=== PATIENT | male | born 1970 | race American Indian/Alaskan Native ===

== ENCOUNTER 2018-08-21 08:33 | Outpatient (CLI) | payer MEDICARE ==
[2018-08-21] MEDS ORDERED: XYLOCAINE TOPICAL 4% TP ONE (09:00)
== END 2018-08-21 08:34 | disposition home or self-care (01) ==
LOC: WOUND 08:33
PROVIDERS: ATTEND Surgery
DX: E11.621 Type 2 diabetes mellitus with foot ulcer (principal); L97.424 Non-pressure chronic ulcer of left heel and midfoot with necrosis of bone; E11.22 Type 2 diabetes mellitus with diabetic chronic kidney disease; I12.0 Hypertensive chronic kidney disease with stage 5 chronic kidney disease or end stage renal disease; N18.6 End stage renal disease
CPT/HCPCS: 11044; 11047; G0463; 36415; 71046; 80048; 83036; 99205

== ENCOUNTER 2018-08-21 12:24 | Outpatient (CLI) | payer MEDICARE ==
[2018-08-21 13:07] LABS: Calcium 7.7 mg/dL (8.4-10.2)
--- NOTE | 2018-08-21 13:46 | XRay Report ---
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 Chest pain COMPARISON: None FINDINGS: Support devices: A dual-lumen right IJ venous catheter terminates in the lower SVC. Heart: Within normal limits. Lungs/pleura: No acute air space or interstitial disease. No pneumothorax. Additional findings: None. IMPRESSION: No acute findings. Signer Name: Suman Browne Jr, MD Signed: 08/21/2018 1:41 PM Workstation Name: [id number]
== END 2018-08-21 12:25 | disposition home or self-care (01) ==
LOC: XRAY 12:24
PROVIDERS: ATTEND Surgery
DX: E11.621 Type 2 diabetes mellitus with foot ulcer (principal); L97.424 Non-pressure chronic ulcer of left heel and midfoot with necrosis of bone
CPT/HCPCS: 36415; 71046; 80048; 83036

== ENCOUNTER 2018-08-28 10:00 | Outpatient (CLI) | payer MEDICARE ==
[2018-08-28] MEDS ORDERED: SILVER NITRATE TP ONE (11:25)
== END 2018-08-28 10:01 | disposition home or self-care (01) ==
LOC: WOUND 10:00
PROVIDERS: ATTEND Surgery
DX: E11.621 Type 2 diabetes mellitus with foot ulcer (principal); L97.424 Non-pressure chronic ulcer of left heel and midfoot with necrosis of bone; E11.22 Type 2 diabetes mellitus with diabetic chronic kidney disease; I12.0 Hypertensive chronic kidney disease with stage 5 chronic kidney disease or end stage renal disease; N18.6 End stage renal disease

== ENCOUNTER 2018-08-30 09:07 | Outpatient (CLI) | payer MEDICARE ==
--- NOTE | 2018-08-30 10:26 | Vascular Lab Report ---
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 TECHNIQUE: Arterial duplex examination of the left lower extremity performed using B-mode, color flow and spectr al Doppler assessment. FINDINGS: LEFT: Common Femoral Artery: PSV 102 cm/sec. Triphasic waveform. Proximal SFA: PSV 113 cm/sec. Monophasic waveform. Mid SFA: PSV 126 cm/sec. Monophasic waveform. Distal SFA: PSV 116 cm/sec. Monophasic waveform. Popliteal artery: PSV 449 cm/sec. Monophasic waveform. Posterior tibial artery: PSV 114 cm/sec. Monophasic waveform. Anterior tibial Artery: PSV 77 cm/sec. Monophasic waveform. Left VALDEMAR: Not calculated. IMPRESSION: 1. There is high-grade (greater than 75%) stenosis at the distal left popliteal artery with significa nt elevation of the peak systolic velocity. 2. Diffusely abnormal monophasic waveforms are seen from the proximal superficial femoral artery dist ally into the tibial arteries. Ankle-Brachial Index (VALDEMAR): - Calcified arteries > 1.4 - Normal = 0.9-1.4 - Mild PAD = 0.7-0.89 - Moderate PAD = 0.51-0.69 - Severe PAD < 0.5 Doppler Waveform: - Triphasic is normal. - Biphasic is abnormal if clear transition from triphasic signal along vascular tree. - Monophasic is abnormal. Signer Name: Rambo Casey MD Signed: 08/30/2018 10:22 AM Workstation Name: [id number]
--- NOTE | 2018-08-30 12:11 | Magnetic Resonance Report ---
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 TECHNIQUE: Multiplanar, multisequence MR images were obtained. COMPARISON: None available. FINDINGS: Abnormal signal is seen in the calcaneus on both T1 and T2-weighted images. There is low T1-weighted signal and high T2-weighted signal. Ulceration is seen in this area with diffuse subcutaneous edema. Visualized ligaments and tendons are normal. Following the administration of intravenous contrast, th ere is enhancement of the calcaneus in the area of abnormal signal on both T1 and T2-weighted images. Degenerative and reactive changes are seen in the midfoot. IMPRESSION: Abnormal signal on both T1 and T2-weighted images in the calcaneus with contrast enhancement worrisom e for osteomyelitis Signer Name: Trell Mitchell MD FACR Signed: 08/30/2018 12:06 PM Workstation Name: [id number]
== END 2018-08-30 09:08 | disposition home or self-care (01) ==
LOC: VAS 09:07
PROVIDERS: ATTEND Surgery
DX: M86.172 Other acute osteomyelitis, left ankle and foot (principal); E11.621 Type 2 diabetes mellitus with foot ulcer; L97.424 Non-pressure chronic ulcer of left heel and midfoot with necrosis of bone
CPT/HCPCS: 73720; 93926; A9577

== ENCOUNTER 2018-09-04 08:46 | Outpatient (CLI) | payer MEDICARE ==
[2018-09-04] MEDS ORDERED: XYLOCAINE TOPICAL 4% TP ONE (08:51)
[2018-09-04] MEDS ORDERED: SILVER NITRATE TP ONE (08:52)
== END 2018-09-04 08:47 | disposition home or self-care (01) ==
LOC: WOUND 08:46
PROVIDERS: ATTEND Surgery
DX: E11.621 Type 2 diabetes mellitus with foot ulcer (principal); L97.424 Non-pressure chronic ulcer of left heel and midfoot with necrosis of bone; E11.22 Type 2 diabetes mellitus with diabetic chronic kidney disease; I12.0 Hypertensive chronic kidney disease with stage 5 chronic kidney disease or end stage renal disease; N18.6 End stage renal disease
CPT/HCPCS: 11044; 11047; 82962; G0277; 99183

== ENCOUNTER 2018-09-05 10:10 | Outpatient (CLI) | payer MEDICARE | END 2018-09-05 10:11 | disposition home or self-care (01) | LOC: WOUND 10:10 | PROVIDERS: ATTEND Surgery | DX: E11.621 Type 2 diabetes mellitus with foot ulcer (principal); L97.424 Non-pressure chronic ulcer of left heel and midfoot with necrosis of bone; E11.22 Type 2 diabetes mellitus with diabetic chronic kidney disease; I12.0 Hypertensive chronic kidney disease with stage 5 chronic kidney disease or end stage renal disease; N18.6 End stage renal disease | CPT/HCPCS: 82962; G0277; 99183 ==

== ENCOUNTER 2018-09-06 10:43 | Outpatient (CLI) | payer MEDICARE | END 2018-09-06 10:44 | disposition home or self-care (01) | LOC: WOUND 10:43 | PROVIDERS: ATTEND Surgery | DX: E11.621 Type 2 diabetes mellitus with foot ulcer (principal); L97.424 Non-pressure chronic ulcer of left heel and midfoot with necrosis of bone; E11.22 Type 2 diabetes mellitus with diabetic chronic kidney disease; I12.0 Hypertensive chronic kidney disease with stage 5 chronic kidney disease or end stage renal disease; N18.6 End stage renal disease | CPT/HCPCS: 82962; G0277; 99183 ==

== ENCOUNTER 2018-09-10 09:53 | Outpatient (CLI) | payer MEDICARE | END 2018-09-10 09:54 | disposition home or self-care (01) | LOC: WOUND 09:53 | PROVIDERS: ATTEND Surgery | DX: E11.621 Type 2 diabetes mellitus with foot ulcer (principal); L97.424 Non-pressure chronic ulcer of left heel and midfoot with necrosis of bone; E11.22 Type 2 diabetes mellitus with diabetic chronic kidney disease; I12.0 Hypertensive chronic kidney disease with stage 5 chronic kidney disease or end stage renal disease; N18.6 End stage renal disease | CPT/HCPCS: 82962 ==

== ENCOUNTER 2018-09-11 09:20 | Outpatient (CLI) | payer MEDICARE ==
[2018-09-11] MEDS ORDERED: XYLOCAINE TOPICAL 4% TP ONE (10:00)
[2018-09-11] MEDS ORDERED: SILVER NITRATE TP ONE (10:00)
== END 2018-09-11 09:21 | disposition home or self-care (01) ==
LOC: WOUND 09:20
PROVIDERS: ATTEND Surgery
DX: E11.621 Type 2 diabetes mellitus with foot ulcer (principal); L97.424 Non-pressure chronic ulcer of left heel and midfoot with necrosis of bone; E11.622 Type 2 diabetes mellitus with other skin ulcer; L97.812 Non-pressure chronic ulcer of other part of right lower leg with fat layer exposed; E11.22 Type 2 diabetes mellitus with diabetic chronic kidney disease; I12.0 Hypertensive chronic kidney disease with stage 5 chronic kidney disease or end stage renal disease; N18.6 End stage renal disease
CPT/HCPCS: 11042; 11043; 11046; G0277; 82962; 99183

== ENCOUNTER 2018-09-12 09:52 | Outpatient (CLI) | payer MEDICARE | END 2018-09-12 09:53 | disposition home or self-care (01) | LOC: WOUND 09:52 | PROVIDERS: ATTEND Surgery | DX: E11.621 Type 2 diabetes mellitus with foot ulcer (principal); L97.424 Non-pressure chronic ulcer of left heel and midfoot with necrosis of bone; E11.22 Type 2 diabetes mellitus with diabetic chronic kidney disease; I12.0 Hypertensive chronic kidney disease with stage 5 chronic kidney disease or end stage renal disease; N18.6 End stage renal disease | CPT/HCPCS: 82962; G0277; 99183 ==

== ENCOUNTER 2018-09-13 09:51 | Outpatient (CLI) | payer MEDICARE | END 2018-09-13 09:52 | disposition home or self-care (01) | LOC: WOUND 09:51 | PROVIDERS: ATTEND Surgery | DX: E11.621 Type 2 diabetes mellitus with foot ulcer (principal); L97.424 Non-pressure chronic ulcer of left heel and midfoot with necrosis of bone; E11.22 Type 2 diabetes mellitus with diabetic chronic kidney disease; I12.0 Hypertensive chronic kidney disease with stage 5 chronic kidney disease or end stage renal disease; N18.6 End stage renal disease | CPT/HCPCS: 82962; G0277; 99183 ==

== ENCOUNTER 2018-09-14 10:01 | Outpatient (CLI) | payer MEDICARE | END 2018-09-14 10:02 | disposition home or self-care (01) | LOC: WOUND 10:01 | PROVIDERS: ATTEND Surgery | DX: E11.621 Type 2 diabetes mellitus with foot ulcer (principal); L97.424 Non-pressure chronic ulcer of left heel and midfoot with necrosis of bone; E11.22 Type 2 diabetes mellitus with diabetic chronic kidney disease; I12.0 Hypertensive chronic kidney disease with stage 5 chronic kidney disease or end stage renal disease; N18.6 End stage renal disease | CPT/HCPCS: 82962; G0277; 99183 ==

== ENCOUNTER 2018-09-17 10:17 | Outpatient (CLI) | payer MEDICARE | END 2018-09-17 10:18 | disposition home or self-care (01) | LOC: WOUND 10:17 | PROVIDERS: ATTEND Surgery | DX: E11.621 Type 2 diabetes mellitus with foot ulcer (principal); L97.424 Non-pressure chronic ulcer of left heel and midfoot with necrosis of bone; E11.22 Type 2 diabetes mellitus with diabetic chronic kidney disease; I12.0 Hypertensive chronic kidney disease with stage 5 chronic kidney disease or end stage renal disease; N18.6 End stage renal disease | CPT/HCPCS: 82962; G0277; 99183 ==

== ENCOUNTER 2018-09-18 08:52 | Outpatient (CLI) | payer MEDICARE ==
[2018-09-18] MEDS ORDERED: SILVER NITRATE TP ONE (10:00)
== END 2018-09-18 08:53 | disposition home or self-care (01) ==
LOC: WOUND 08:52
PROVIDERS: ATTEND Surgery
DX: E11.621 Type 2 diabetes mellitus with foot ulcer (principal); L97.424 Non-pressure chronic ulcer of left heel and midfoot with necrosis of bone; E11.22 Type 2 diabetes mellitus with diabetic chronic kidney disease; I12.0 Hypertensive chronic kidney disease with stage 5 chronic kidney disease or end stage renal disease; N18.6 End stage renal disease
CPT/HCPCS: 11042; 11045; 82962; G0277; 99183

== ENCOUNTER 2018-09-19 09:58 | Outpatient (CLI) | payer MEDICARE | END 2018-09-19 09:59 | disposition home or self-care (01) | LOC: WOUND 09:58 | PROVIDERS: ATTEND Surgery | DX: E11.621 Type 2 diabetes mellitus with foot ulcer (principal); L97.424 Non-pressure chronic ulcer of left heel and midfoot with necrosis of bone; E11.22 Type 2 diabetes mellitus with diabetic chronic kidney disease; I12.0 Hypertensive chronic kidney disease with stage 5 chronic kidney disease or end stage renal disease; N18.6 End stage renal disease | CPT/HCPCS: 82962; G0277; 99183 ==

== ENCOUNTER 2018-09-20 09:57 | Outpatient (CLI) | payer MEDICARE | END 2018-09-20 09:58 | disposition home or self-care (01) | LOC: WOUND 09:57 | PROVIDERS: ATTEND Surgery | DX: E11.621 Type 2 diabetes mellitus with foot ulcer (principal); L97.424 Non-pressure chronic ulcer of left heel and midfoot with necrosis of bone; E11.22 Type 2 diabetes mellitus with diabetic chronic kidney disease; I12.0 Hypertensive chronic kidney disease with stage 5 chronic kidney disease or end stage renal disease; N18.6 End stage renal disease | CPT/HCPCS: 82962; G0277; 99183 ==

== ENCOUNTER 2018-09-25 10:04 | Outpatient (CLI) | payer MEDICARE | END 2018-09-25 10:05 | disposition home or self-care (01) | LOC: WOUND 10:04 | PROVIDERS: ATTEND Surgery | DX: E11.621 Type 2 diabetes mellitus with foot ulcer (principal); L97.424 Non-pressure chronic ulcer of left heel and midfoot with necrosis of bone; E11.22 Type 2 diabetes mellitus with diabetic chronic kidney disease; I12.0 Hypertensive chronic kidney disease with stage 5 chronic kidney disease or end stage renal disease; N18.6 End stage renal disease | CPT/HCPCS: 82962; G0277; 99183 ==

== ENCOUNTER 2018-09-26 10:01 | Outpatient (CLI) | payer MEDICARE | END 2018-09-26 10:02 | disposition home or self-care (01) | LOC: WOUND 10:01 | PROVIDERS: ATTEND Surgery | DX: E11.621 Type 2 diabetes mellitus with foot ulcer (principal); L97.424 Non-pressure chronic ulcer of left heel and midfoot with necrosis of bone; E11.22 Type 2 diabetes mellitus with diabetic chronic kidney disease; I12.0 Hypertensive chronic kidney disease with stage 5 chronic kidney disease or end stage renal disease; N18.6 End stage renal disease | CPT/HCPCS: 82962; G0277; 99183 ==

== ENCOUNTER 2018-09-27 09:55 | Outpatient (CLI) | payer MEDICARE | END 2018-09-27 09:56 | disposition home or self-care (01) | LOC: WOUND 09:55 | PROVIDERS: ATTEND Surgery | DX: E11.621 Type 2 diabetes mellitus with foot ulcer (principal); L97.424 Non-pressure chronic ulcer of left heel and midfoot with necrosis of bone; E11.22 Type 2 diabetes mellitus with diabetic chronic kidney disease; I12.0 Hypertensive chronic kidney disease with stage 5 chronic kidney disease or end stage renal disease; N18.6 End stage renal disease | CPT/HCPCS: 82962; G0277; 99183 ==

== ENCOUNTER 2018-09-28 09:42 | Outpatient (CLI) | payer MEDICARE | END 2018-09-28 09:43 | disposition home or self-care (01) | LOC: WOUND 09:42 | PROVIDERS: ATTEND Surgery | DX: E11.621 Type 2 diabetes mellitus with foot ulcer (principal); L97.424 Non-pressure chronic ulcer of left heel and midfoot with necrosis of bone; E11.22 Type 2 diabetes mellitus with diabetic chronic kidney disease; I12.0 Hypertensive chronic kidney disease with stage 5 chronic kidney disease or end stage renal disease; N18.6 End stage renal disease | CPT/HCPCS: 82962; G0277; 99183 ==

== ENCOUNTER 2018-10-01 09:52 | Outpatient (CLI) | payer MEDICARE | END 2018-10-01 09:53 | disposition home or self-care (01) | LOC: WOUND 09:52 | PROVIDERS: ATTEND Surgery | DX: E11.621 Type 2 diabetes mellitus with foot ulcer (principal); L97.424 Non-pressure chronic ulcer of left heel and midfoot with necrosis of bone; E11.22 Type 2 diabetes mellitus with diabetic chronic kidney disease; I12.0 Hypertensive chronic kidney disease with stage 5 chronic kidney disease or end stage renal disease; N18.6 End stage renal disease | CPT/HCPCS: 82962; G0277; 99183 ==

== ENCOUNTER 2018-10-04 09:30 | Outpatient (CLI) | payer MEDICARE ==
[2018-10-04] MEDS ORDERED: XYLOCAINE TOPICAL 4% TP NR (10:00)
[2018-10-04] MEDS ORDERED: SILVER NITRATE TP NR (10:00)
== END 2018-10-04 09:31 | disposition home or self-care (01) ==
LOC: WOUND 09:30
PROVIDERS: ATTEND Surgery
DX: E11.621 Type 2 diabetes mellitus with foot ulcer (principal); L97.424 Non-pressure chronic ulcer of left heel and midfoot with necrosis of bone; E11.22 Type 2 diabetes mellitus with diabetic chronic kidney disease; I12.0 Hypertensive chronic kidney disease with stage 5 chronic kidney disease or end stage renal disease; N18.6 End stage renal disease
CPT/HCPCS: 11042; 11045; G0277; 82962; 99183